=== PATIENT | male | born 1955 | race African-American/Black ===

== ENCOUNTER 2022-03-13 08:56 | Emergency (ER) | payer SELFPAY ==
[~2022-03-13] VITALS: Ht 182.9 cm; Wt 77.1 kg
[2022-03-13 09:13] VITALS: BP 147/76
--- NOTE | 2022-03-13 09:20 | NUR ---
PT WAS B/B AMBULANCE FROM OUTSIDE FOR SHOULDERS AND FINGERS PAIN BILATERALLY. PT IS HOMELESS. HX OF PROSTATE CA. PT WAS A/OX4. BUT LETHARGIC. ORAL TEMP WAS LOWER. WILL CHECK RECTALLY.
--- NOTE | 2022-03-13 09:36 | NUR ---
RECTAL TEMP 95.2 DR. MORROW WAS NOTIFIED.
[2022-03-13] MEDS ORDERED: KETOROLAC 60 MG/2 ML VIAL IM ONE (09:55)
--- NOTE | 2022-03-13 10:04 | NUR ---
PT WAS MEDICATED WITH TORADOL PER MD ORDER.
[2022-03-13] MEDS ORDERED: NAPR-1704 PO (10:59)
--- NOTE | 2022-03-13 11:13 | NUR ---
PT WAS D/C'D BY DR. MORROW. [facility] WAS CALLED. LYUDMILA ANSWERED PHONE. PT HAS NO PLACE TO GO. DOCUMENT EXAMINER WAS CALLED AND MESSAGE LEFT.
[2022-03-13 11:30] VITALS: BP 136/75
--- NOTE | 2022-03-13 11:45 | NUR ---
Patient discharged with v/s stable. Written and verbal after care instructions given and explained. Patient verbalized understanding. Wheel Chair Assisted with by caregiver. All questions addressed prior to discharge. Advised to follow up with PMD.
--- NOTE | 2022-03-13 11:54 | NUR ---
[facility] SENT SOME TO PICKUP PT. PT WAS W/C'D OUT OF ED.
== END 2022-03-13 11:45 | disposition home or self-care (01) ==
LOC: MED 08:56
DX: M13.811 Other specified arthritis, right shoulder (principal); Z88.0 Allergy status to penicillin; Z79.899 Other long term (current) drug therapy; Z85.46 Personal history of malignant neoplasm of prostate
CPT/HCPCS: 96372; 99283; J1885